=== PATIENT | female | born 1975 | race Caucasian/White ===

== ENCOUNTER 2021-09-23 10:16 | Observation (INO) | payer BC ==
[2021-09-17 13:42] LABS: Absolute Lymphocytes (CBC) 2.7 K/uL (0.7-4.9); Basophils % 0.7 % (0-1.3); Hematocrit 44.8 % (36.0-45.0); Lymphocytes % 22.2 % (15.3-44.8); MPV 7.7 fL (7.6-11.3); RBC Red Blood Cell Count 4.88 M/uL (3.86-4.86)
[2021-09-17 13:43] LABS: Urine Appearance CLEAR (Clear); Urine Bilirubin NEGATIVE (Negative); Urine Blood 3+ (Negative); Urine Color YELLOW (Yellow); Urine Glucose NEGATIVE (Negative); Urine Protein NEGATIVE (Negative); Urine Specific Gravity <=1.005 (1.005-1.030)
[2021-09-17 13:44] LABS: Urine Microscopic Reflex ORDER UMIC
[2021-09-17 13:53] LABS: Urine Bacteria <20 /HPF (<20); Urine RBC LOADED /HPF (NONE SEEN)
[2021-09-23] MEDS ORDERED: Ringers Lactate 1,000 ML IV ONE ×3 (11:12→15:39)
[2021-09-23] MEDS ORDERED: SCOPOLAMINE HYDROBROMIDE PATCH TD ONE (11:12)
[2021-09-23] MEDS ORDERED: MIDAZOLAM HCL 2 MG/2 ML INJ ONE ×2 (11:44→12:19)
[2021-09-23] MEDS ORDERED: ALBUTEROL 2.5 MG/3 ML NEB SOL ONE ×2 (11:50→15:39)
[2021-09-23] MEDS ORDERED: propofoL 200 MG/20 ML VIAL IV ONE (12:19)
[2021-09-23] MEDS ORDERED: ONDANSETRON 4 MG/2 ML VIAL ONE (12:20)
[2021-09-23] MEDS ORDERED: ROCURONIUM 50 MG/5 ML VIAL IV ONE ×2 (12:20→13:38)
[2021-09-23] MEDS ORDERED: FENTANYL CITR 250 MCG/5 ML ONE (12:20)
[2021-09-23] MEDS ORDERED: GLYCOPYRROLATE 0.2 MG/ML SYR ONE (12:20)
[2021-09-23] MEDS: CEFAZOLIN/SWI 2gm 2 GM/20 ML SYR ONE ×2 (12:55→13:03)
[2021-09-23] MEDS: BUPIVACAINE 0.25% PF 30 ML VIAL ONE ×3 (12:56→13:50)
[2021-09-23] MEDS ORDERED: dexAMETHasone 10 MG/ML VIAL ONE (13:31)
[2021-09-23] MEDS ORDERED: KETOROLAC 30 MG/ML INJ ONE ×2 (14:54→21:09)
[2021-09-23] MEDS ORDERED: Mastisol Adhesive Liq ONE (15:26)
[2021-09-23] MEDS ORDERED: ALBUTEROL INHALER 60 PUFF/8 GM IH PRN (15:38)
[2021-09-23] MEDS ORDERED: PROMETHAZINE INJ 25 MG/ML AMP IV PRN (15:40)
[2021-09-23] MEDS ORDERED: MEPERIDINE HCL 25 MG/ML SYR IM PRN (15:40)
--- NOTE | 2021-09-23 15:46 | P.BOP ---
Preoperative diagnosis: AUB-A/o/ Dysmenorrhea, left ovarian cyst Postoperative diagnosis: same Primary procedure: TLH LSO pelvic washings ALMA omental adhesions cystoscopy Rehabilitation Specialist: Amina Hou Estimated blood loss: minimal Specimen: uterus left ovary and tube, pelvic washings Findings: left ovarian cysts, omental adhesions Anesthesia: General Complications: None Transferred to: Recovery Room Condition: Good
[2021-09-23] MEDS: HYDROMORPHONE HCL 1 MG/ML INJ ONE ×2 (15:52→16:08)
[2021-09-23] MEDS ORDERED: HYDROMORPHONE HCL 1 MG/ML INJ ONE (16:06)
[2021-09-23 17:26] VITALS: O2SAT 96
[2021-09-23] MEDS ORDERED: PROMETHAZINE INJ 25 MG/ML AMP ONE (18:57)
[2021-09-23] MEDS ORDERED: HYDROCODONE/APAP 5/325 MG TAB ONE (19:06)
[2021-09-23] MEDS: HYDROCODONE/APAP 5/325 MG TAB PO PRN (19:10)
[2021-09-23] MEDS ORDERED: NA CHLORIDE 0.9% 1,000 ML ONE (19:47)
[2021-09-23] MEDS ORDERED: MEPERIDINE HCL 25 MG/ML SYR ONE (20:21)
[2021-09-23] MEDS ORDERED: DICLOFENAC POTASSIUM 50 MG PO SCH (21:00)
[2021-09-23] MEDS ORDERED: BACLOFEN 10 MG TAB PO SCH (21:00)
[2021-09-23] MEDS ORDERED: PREGABALIN 75 MG CAP PO SCH (21:00)
[2021-09-23] MEDS ORDERED: SUMATRIPTAN SUCCI 50 MG TAB PO PRN (23:05)
[2021-09-24 00:03] VITALS: BMI 34.5
[2021-09-24] MEDS: HYDROCODONE/APAP 5/325 MG TAB PO PRN ×2 (01:10→07:23)
[2021-09-24] MEDS ORDERED: DULERA 100/5 (MOMETASONE/FORMOTEROL) INHALER IH SCH (09:00)
[2021-09-24 09:45] VITALS: BP 95/55; TEMP 98.6
== END 2021-09-24 08:18 | disposition other institution (70) ==
LOC: OR 10:16 → 2ND-WC 22:57
PROVIDERS: ADMIT Obstetrics & Gynecology; ATTEND Obstetrics & Gynecology
PROC: 0UT14ZZ Resection of Left Ovary, Percutaneous Endoscopic Approach (ICD-10-PCS; 2021-09-23)
PROC: 0UT64ZZ Resection of Left Fallopian Tube, Percutaneous Endoscopic Approach (ICD-10-PCS; 2021-09-23)
PROC: 0UT94ZZ Resection of Uterus, Percutaneous Endoscopic Approach (ICD-10-PCS; principal; 2021-09-23 12:45)
DX: N94.6 Dysmenorrhea, unspecified (principal); N83.202 Unspecified ovarian cyst, left side; N92.1 Excessive and frequent menstruation with irregular cycle; R19.09 Other intra-abdominal and pelvic swelling, mass and lump; M54.59 Other low back pain; J45.909 Unspecified asthma, uncomplicated; M70.62 Trochanteric bursitis, left hip; F17.200 Nicotine dependence, unspecified, uncomplicated; Z20.822 Contact with and (suspected) exposure to COVID-19
CPT/HCPCS: 85025; 36415; 86900; 88108; 86850; 81025; 86901; 88305; 88307; 58571; U0003; J2704; J2250 ×2; J3010; J1100; J2175; J1170 ×2; J0690; J7120 ×3; J7030; J2405; G0378 ×2; 81003; 81015; J2550; J7606

== ENCOUNTER 2024-01-21 11:09 | Observation (INO) | payer BC ==
--- OUTSIDE RECORDS SUMMARY | 2024-01-21 11:13 | XMS REPORT | Continuity of Care Document ---
Author Name Unknown Address [address] [facility] [place] [address] [facility] Address [address] [facility] [place] [address] Care Team Providers Care Bookmobile Librarian Name Role Phone Pcp, Patient Does Not Have A Primary Care Physic noemi GC_GCBZW_Kaamarisa_S Attending Clinician JOSH Torres Attending Clinician Unavailable Service/[place], Surgery C Attending Clinician U dominic Johnson MD, Osiel Attending Clinician [phone] Josh Rodas MD Attending Clinician [phone] Doctor Unassigned, [place] Attending Clinician U Matteo Aparicio DO Attending Clinician [phone] Sreedhar Young MD Attending Clinician [phone] SREEDHAR YOUNG Attending Clinician Astrid peter GC_GCBZW_Kaxiao_Phillip Admitting Clinician Matteo Sanchez DO Admitting Clinician [phone] MATTEO HOOPER Admitting Clinician Unavailabl e Payers Payer Name Policy Type Policy Number Effective Date Expirati on Date Source [facility] [id number] 2014 00:00:00 Problems Condition Name Condition Details Condition Category Status Onset Date Resolution Date Last Treatment Date Treating Clinician Comments Source Obesity (BMI 30-39.9) Obesity (BMI 30-39.9) Disease Active 2021-11 00:00: 00 [facility] Acute cholecysti tis Acute cholecysti tis Disease Active 2021-1116 00:00: 00 [facility] Pelvic mass in female Pelvic mass in female Disease Active 07-25 00:00: 00 [facility] Allergies, Adverse Reactions, Alerts Allergy Name Allergy Type Status Severity Reaction(s) Onset Date Inactive Date Treating Clinician Comments Source NO KNOWN ALLERGIE S Drug Class Active [facility] Social History Social Habit Start Date Stop Date Quantity Comments Source History of tobacco use Smokes tobacco daily [facility] Exposure to SARS-CoV-2 (event) 2022-10-10 00:00:00 2022-10-20 10:00:00 Not sure [facility] Sex Assigned At 1975 00:00:00 1975 00:00:00 [facility] Smoking Status Start Date Stop Date Source Smokes tobacco daily [facility] Medications Ordered Medication Name Filled Medication Name Start Date Stop Date Current Medication? Ordering Clinician Indication Dosage Frequency Signature (SIG) Comments Components Source PARoxetine 10 mg tablet 2021-11 10:11: 29 Yes 10mg Take 10 mg by mouth in the morning. [facility] baclofen 10 mg tablet 2021-11 10:11: 29 Yes 15mg Take 15 mg by mouth in the morning and 15 mg at noon and 15 mg in the evening. [facility] pregabalin 75 mg capsule 2021-11 10:11: 29 Yes 75mg Take 75 mg by mouth in the morning and 75 mg at noon and 75 mg in the evening. [facility] diclofenac 50 mg EC tablet 2021-11 10:11: 29 Yes 50mg Take 50 mg by mouth in the morning and 50 mg at noon and 50 mg in the evening. Take with meals. [facility] HYDROcodone -acetaminop hen 5-325 mg tablet 2021-11 10:11: 29 Yes 1{tbl} Take 1 tablet by mouth in the morning. [facility] albuterol 2.5 mg/0.5 mL nebulizer solution 2021-11 10:11: 29 Yes 1{ampul e} Use 1 Ampule as directed every 6 (six) hours as needed for Wheezing. [facility] PARoxetine 10 mg tablet 2021-11 10:: 29 Yes 10mg Take 10 mg by mouth in the morning. [facility] baclofen 10 mg tablet 2021-11 10:11: 29 Yes 15mg Take 15 mg by mouth in the morning and 15 mg at noon and 15 mg in the evening. [facility] pregabalin 75 mg capsule 2021-11 10:: 29 Yes 75mg Take 75 mg by mouth in the morning and 75 mg at noon and 75 mg in the evening. [facility] diclofenac 50 mg EC tablet 2021-11 10:11: 29 Yes 50mg Take 50 mg by mouth in the morning and 50 mg at noon and 50 mg in the evening. Take with meals. [facility] HYDROcodone -acetaminop hen 5-325 mg tablet 2021-11 10:11: 29 Yes 1{tbl} Take 1 tablet by mouth in the morning. [facility] albuterol 2.5 mg/0.5 mL nebulizer solution 2021-11 10:11: 29 Yes 1{ampul e} Use 1 Ampule as directed every 6 (six) hours as needed for Wheezing. [facility] polyethylen e glycol 3350 17 gram powder 2021-11 00:00: 00 Yes [id number] 17g Take 1 Packet by mouth every morning. [facility] polyethylen e glycol 3350 17 gram powder 2021-11 00:00: 00 Yes [id number] 17g Take 1 Packet by mouth every morning. [facility] polyethylen e glycol 3350 17 gram powder 2021-11 00:00: 00 Yes [id number] 17g Take 1 Packet by mouth every morning. [facility] polyethylen e glycol 3350 17 gram powder 2021-11 00:00: 00 Yes [id number] 17g Take 1 Packet by mouth every morning. [facility] polyethylen e glycol 3350 17 gram powder 2021-11 00:00: 00 Yes [id number] 17g Take 1 Packet by mouth every morning. [facility] polyethylen e glycol 3350 17 gram powder 2021-11 00:00: 00 Yes [id number] 17g Take 1 Packet by mouth every morning. [facility] PARoxetine 10 mg tablet 2021-11 17:35: 32 Yes 10mg Take 10 mg by mouth in the morning. [facility] baclofen 10 mg tablet 2021-11 17:35: 32 Yes 15mg Take 15 mg by mouth in the morning and 15 mg at noon and 15 mg in the evening. [facility] pregabalin (LYRICA) 75 mg capsule 2021-11 17:35: 32 Yes 75mg Take 75 mg by mouth in the morning and 75 mg at noon and 75 mg in the evening. [facility] diclofenac 50 mg EC tablet 2021-11 17:35: 32 Yes 50mg Take 50 mg by mouth in the morning and 50 mg at noon and 50 mg in the evening. Take with meals. [facility] HYDROcodone -acetaminop hen (NORCO) 5-325 mg tablet 2021-11 17:35: 32 Yes 1{tbl} Take 1 tablet by mouth in the morning. [facility] fluticasone propion-xenia meteroL 250-50 mcg/dose inhalation disk 2021-11 17:35: 32 Yes 1{puff} Inhale 1 Puff every 12 (twelve) hours. [facility] albuterol 2.5 mg/0.5 mL nebulizer solution 2021-11 17:35: 32 Yes 1{ampul e} Use 1 Ampule as directed every 6 (six) hours as needed for Wheezing. [facility] PARoxetine 10 mg tablet 2021-11 17:35: 32 Yes 10mg Take 10 mg by mouth in the morning. [facility] baclofen 10 mg tablet 2021-11 17:35: 32 Yes 15mg Take 15 mg by mouth in the morning and 15 mg at noon and 15 mg in the evening. [facility] pregabalin (LYRICA) 75 mg capsule 2021-11 17:35: 32 Yes 75mg Take 75 mg by mouth in the morning and 75 mg at noon and 75 mg in the evening. [facility] diclofenac 50 mg EC tablet 2021-11 17:35: 32 Yes 50mg Take 50 mg by mouth in the morning and 50 mg at noon and 50 mg in the evening. Take with meals. [facility] HYDROcodone -acetaminop hen (NORCO) 5-325 mg tablet 2021-11 17:35: 32 Yes 1{tbl} Take 1 tablet by mouth in the morning. [facility] fluticasone propion-xenia meteroL 250-50 mcg/dose inhalation disk 2021-11 17:35: 32 Yes 1{puff} Inhale 1 Puff every 12 (twelve) hours. [facility] albuterol 2.5 mg/0.5 mL nebulizer solution 2021-11 17:35: 32 Yes 1{ampul e} Use 1 Ampule as directed every 6 (six) hours as needed for Wheezing. [facility] fluticasone propion-xenia meteroL 250-50 mcg/dose inhalation disk 2021-11 17:35: 32 Yes 1{puff} Inhale 1 Puff every 12 (twelve) hours. [facility] fluticasone propion-xenia meteroL 250-50 mcg/dose inhalation disk 2021-11 17:35: 32 Yes 1{puff} Inhale 1 Puff every 12 (twelve) hours. [facility] PARoxetine 10 mg tablet 2021-11 17:35: 32 Yes 10mg Take 10 mg by mouth in the morning. [facility] baclofen 10 mg tablet 2021-11 17:35: 32 Yes 15mg Take 15 mg by mouth in the morning and 15 mg at noon and 15 mg in the evening. [facility] pregabalin (LYRICA) 75 mg capsule 2021-11 17:35: 32 Yes 75mg Take 75 mg by mouth in the morning and 75 mg at noon and 75 mg in the evening. [facility] diclofenac 50 mg EC tablet 2021-11 17:35: 32 Yes 50mg Take 50 mg by mouth in the morning and 50 mg at noon and 50 mg in the evening. Take with meals. [facility] HYDROcodone -acetaminop hen (NORCO) 5-325 mg tablet 2021-11 17:35: 32 Yes 1{tbl} Take 1 tablet by mouth in the morning. [facility] fluticasone propion-xenia meteroL 250-50 mcg/dose inhalation disk 2021-11 17:35: 32 Yes 1{puff} Inhale 1 Puff every 12 (twelve) hours. [facility] albuterol 2.5 mg/0.5 mL nebulizer solution 2021-11 17:35: 32 Yes 1{ampul e} Use 1 Ampule as directed every 6 (six) hours as needed for Wheezing. [facility] PARoxetine 10 mg tablet 2021-11 17:35: 32 Yes 10mg Take 10 mg by mouth in the morning. [facility] baclofen 10 mg tablet 2021-11 17:35: 32 Yes 15mg Take 15 mg by mouth in the morning and 15 mg at noon and 15 mg in the evening. [facility] pregabalin (LYRICA) 75 mg capsule 2021-11 17:35: 32 Yes 75mg Take 75 mg by mouth in the morning and 75 mg at noon and 75 mg in the evening. [facility] diclofenac 50 mg EC tablet 2021-11 17:35: 32 Yes 50mg Take 50 mg by mouth in the morning and 50 mg at noon and 50 mg in the evening. Take with meals. [facility] HYDROcodone -acetaminop hen (NORCO) 5-325 mg tablet 2021-11 17:35: 32 Yes 1{tbl} Take 1 tablet by mouth in the morning. [facility] fluticasone propion-xenia meteroL 250-50 mcg/dose inhalation disk 2021-11 17:35: 32 Yes 1{puff} Inhale 1 Puff every 12 (twelve) hours. [facility] albuterol 2.5 mg/0.5 mL nebulizer solution 2021-11 17:35: 32 Yes 1{ampul e} Use 1 Ampule as directed every 6 (six) hours as needed for Wheezing. [facility] celecoxib (CELEBREX) capsule 100 mg 2021-11 14:00: 00 Yes 100mg 100 mg, Oral, BID MEALS, First dose on Wed10/02/22 at 0800, Until Discontinu ed, Routine [facility] celecoxib (CELEBREX) capsule 100 mg 2021-11 14:00: 00 Yes 100mg 100 mg, Oral, BID MEALS, First dose on Wed10/02/22 at 0800, Until Discontinu ed, Routine [facility] acetaminoph en ADULT (OFIRMEV) injection 1,000 mg 2021-11 04:00: 00 10-03 03:59 :00 No 1000mg 1,000 mg, IV Infusion, at 400 mL/hr Administer over 15 Minutes, Q8H, 3 doses, First dose (after last reorder) on Wed10/01/22 at 2200, Last dose on Wed10/02/22 at 1400, Routine
Indicatio n: Perioperat anamika Patient [facility] acetaminoph en ADULT (OFIRMEV) injection 1,000 mg 2021-11 04:00: 00 10-03 03:59 :00 No 1000mg 1,000 mg, IV Infusion, at 400 mL/hr Administer over 15 Minutes, Q8H, 3 doses, First dose (after last reorder) on Wed10/01/22 at 2200, Last dose on Wed10/02/22 at 1400, Routine
Indicatio n: Perioperat anamika Patient [facility] bupivacaine (preserv free) (SENSORCAIN E MPF) 0.25 % (2.5 mg/mL) 30 mL, bupivacaine liposome (PF) (EXPAREL (PF)) 1.3 % (13.3 mg/mL) 20 mg 2021-11 23:00: 00 10-02 01:15 :02 No PRN, Starting on Wed10/01/22 at 1700, Intra-op [facility] methocarbam oL (ROBAXIN) tablet 500 mg 2021-11 22:00: 00 Yes 500mg 500 mg, Oral, QID, First dose on Wed10/01/22 at 1600, Until Discontinu ed, Routine [facility] methocarbam oL (ROBAXIN) tablet 500 mg 2021-11 22:00: 00 Yes 500mg 500 mg, Oral, QID, First dose on Wed10/01/22 at 1600, Until Discontinu ed, Routine [facility] PARoxetine (PAXIL) tablet 10 mg 2021-11 15:00: 00 Yes 10mg 10 mg, Oral, DAILY, First dose on Wed10/01/22 at 0900, Until Discontinu ed, Routine [facility] polyethylen e glycol 3350 powder 17 g 2021-11 15:00: 00 Yes 17g 17 g, Oral, QAM, First dose on Wed10/01/22 at 0900, Until Discontinu ed, Routine [facility] PARoxetine (PAXIL) tablet 10 mg 2021-11 15:00: 00 Yes 10mg 10 mg, Oral, DAILY, First dose on Wed10/01/22 at 0900, Until Discontinu ed, Routine [facility] polyethylen e glycol 3350 powder 17 g 2021-11 15:00: 00 Yes 17g 17 g, Oral, QAM, First dose on Wed10/01/22 at 0900, Until Discontinu ed, Routine [facility] piperacilli n-tazobacta m (ZOSYN) 3.375 g in NaCl 0.9% (NS) 50 mL MINI-BAG 2021-11 10:00: 00 10-02 01:01 :33 No 3.375g 3.375 g, IV Piggyback, Q8H ABX, 9 doses, First dose on Wed10/01/22 at 0400, Last dose on Wed10/03/22 at 2000, Administer over 4 Hours, 50 mL
Reas on for Anti-Infec tive: Documented Infection& lt;br>Docu mented Infection Site: Abdominal< br>Duratio n of Therapy: 7 days [facility] piperacilli n-tazobacta m (ZOSYN) 3.375 g in NaCl 0.9% (NS) 50 mL MINI-BAG 2021-11 10:00: 00 10-02 01:01 :33 No 3.375g 3.375 g, IV Piggyback, Q8H ABX, 9 doses, First dose on [place] 10/01/22 at 0400, Last dose on Wed10/03/22 at 2000, Administer over 4 Hours, 50 mL
Reas on for Anti-Infec tive: Documented Infection& lt;br>Docu mented Infection Site: Abdominal< br>Duratio n of Therapy: 7 days [facility] ketorolac (TORADOL) injection 15 mg 2021-11 06:00: 00 10-02 01:01 :33 No 15mg 15 mg, Slow IV Push, Q6H, 4 doses, First dose on Wed10/01/22 at 0000, Last dose on Wed10/01/22 at 1800, Routine [facility] ketorolac (TORADOL) injection 15 mg 2021-11 06:00: 00 10-02 01:01 :33 No 15mg 15 mg, Slow IV Push, Q6H, 4 doses, First dose on Wed10/01/22 at 0000, Last dose on Wed10/01/22 at 1800, Routine [facility] acetaminoph en ADULT (OFIRMEV) injection 1,000 mg 2021-11 04:00: 00 10-01 19:51 :00 No 1000mg 1,000 mg, IV Infusion, at 400 mL/hr Administer over 15 Minutes, Q8H, 3 doses, First dose on Wed09/30/22 at 2200, Last dose on Wed10/01/22 at 1400, Routine
Indicatio n: Perioperat anamika Patient [facility] acetaminoph en ADULT (OFIRMEV) injection 1,000 mg 2021-11 04:00: 00 10-01 19:51 :00 No 1000mg 1,000 mg, IV Infusion, at 400 mL/hr Administer over 15 Minutes, Q8H, 3 doses, First dose on Wed09/30/22 at 2200, Last dose on Wed10/01/22 at 1400, Routine
Indicatio n: Perioperat anamika Patient [facility] maalox:diph enhydrAMINE :lidocaine 2 % viscous 1:1:1 ([facility]) oral suspension 15 mL 2021-11 02:45: 51 Yes 15mL 15 mL, Oral, QDAILYPRN, Starting on Wed09/30/22 at 2044, Until Discontinu ed, Routine, Heartburn [facility] maalox:diph enhydrAMINE :lidocaine 2 % viscous 1:1:1 ([facility]) oral suspension 15 mL 2021-11 02:45: 51 Yes 15mL 15 mL, Oral, QDAILYPRN, Starting on Wed09/30/22 at 5, Until Discontinu ed, Routine, Heartburn [facility] piperacilli n-tazobacta m (ZOSYN) 3.375 g in NaCl 0.9% (NS) 50 mL MINI-BAG 2021-11 02:15: 00 10-01 03:05 :00 No 3.375g 3.375 g, IV Piggyback, ONCE, 1 dose, On Wed09/30/22 at 2015, Administer over 30 Minutes, 50 mL
Reas on for Anti-Infec tive: Documented Infection< br>Documen nadine Infection Site: Abdominal< br>Duratio n of Therapy: 7 days [facility] piperacilli n-tazobacta m (ZOSYN) 3.375 g in NaCl 0.9% (NS) 50 mL MINI-BAG 2021-11 02:15: 00 10-01 03:05 :00 No 3.375g 3.375 g, IV Piggyback, ONCE, 1 dose, On Wed09/30/22 at 2014, Administer over 30 Minutes, 50 mL
Reas on for Anti-Infec tive: Documented Infection< br>Documen nadine Infection Site: Abdominal< br>Duratio n of Therapy: 7 days [facility] pregabalin (LYRICA) capsule 75 mg 2021-11 02:00: 00 Yes 75mg 75 mg, Oral, TID, First dose on Wed09/30/22 at 1999, Until Discontinu ed, Routine [facility] budesonide- formoteroL (SYMBICORT) 160-4.5 mcg/actuati on inhaler 2 Puff 2021-11 02:00: 00 Yes 2{puff} 2 Puff, Inhalation , BID, First dose on Wed09/30/22 at 1999, Until Discontinu ed [facility] pregabalin (LYRICA) capsule 75 mg 2021-11 02:00: 00 Yes 75mg 75 mg, Oral, TID, First dose on Wed09/30/22 at 2000, Until Discontinu ed, Routine [facility] budesonide- formoteroL (SYMBICORT) 160-4.5 mcg/actuati on inhaler 2 Puff 2021-11 02:00: 00 Yes 2{puff} 2 Puff, Inhalation , BID, First dose on Wed09/30/22 at 1999, Until Discontinu ed [facility] D5W 0.45% NaCl (1/2NS) 1 L + KCL 20 mEq 2021-11 01:30: 00 Yes IV Infusion, at 100 mL/hr, CONTINUOUS , Starting on Wed09/30/22 at 1930, Until Discontinu ed, Routine [facility] D5W 0.45% NaCl (1/2NS) 1 L + KCL 20 mEq 2021-11 01:30: 00 Yes IV Infusion, at 100 mL/hr, CONTINUOUS , Starting on Wed09/30/22 at 1930, Until Discontinu ed, Routine [facility] pantoprazol e (PROTONIX) injection 40 mg 2021-11 01:30: 00 10-04 01:14 :00 No 40mg 40 mg, Slow IV Push, Q24H, 3 doses, First dose on Wed09/30/22 at 1930, Last dose on Wed10/02/22 at 1930 [facility] pantoprazol e (PROTONIX) injection 40 mg 2021-11 01:30: 00 10-04 01:14 :00 No 40mg 40 mg, Slow IV Push, Q24H, 3 doses, First dose on Wed09/30/22 at 1930, Last dose on Wed10/02/22 at 1930 [facility] HYDROcodone -acetaminop hen (NORCO 5) 5-325 mg tablet 1 tablet 2021-11 01:13: 27 Yes 1{tbl} 1 tablet, Oral, Q6HPRN, Starting on Wed09/30/22 at 1913, Until Discontinu ed, Routine, Pain (scale 4-6) [facility] HYDROcodone -acetaminop hen (NORCO 5) 5-325 mg tablet 1 tablet 2021-11 01:13: 27 Yes 1{tbl} 1 tablet, Oral, Q6HPRN, Starting on Wed09/30/22 at 1913, Until Discontinu ed, Routine, Pain (scale 4-6) [facility] morpHINE (4 mg/mL) injection 4 mg 2021-11 01:13: 19 Yes 4mg 4 mg, Slow IV Push, Q4HPRN, Starting on Wed09/30/22 at 1913, Until Discontinu ed, Routine, Pain (scale 7-10) [facility] morpHINE (4 mg/mL) injection 4 mg 2021-11 01:13: 19 Yes 4mg 4 mg, Slow IV Push, Q4HPRN, Starting on Wed09/30/22 at 1913, Until Discontinu ed, Routine, Pain (scale 7-10) [facility] ibuprofen (MOTRIN) 600 mg tablet 07-28 00:00: 00 09-30 00:00 :00 No 600mg Take 1 tablet by mouth every 6 (six) hours as needed for Pain (scale 4-6). [facility] ibuprofen (MOTRIN) 600 mg tablet 2016-0 9-13 00:00: 00 09-30 00:00 :00 No 600mg Take 1 tablet by mouth every 6 (six) hours as needed for Pain (scale 4-6). [facility] Vital Signs Vital Name Observation Time Observation Value Comments S phan Systolic blood pressure 2022-10-20 16:11:00 118 mm[Hg] [facility] Diastolic blood pressure 2022-10-20 16:11:00 73 mm[Hg] [facility] Heart rate 2022-10-20 16:11:00 77 /min [facility] Body temperature 2022-10-20 16:11:00 36.17 [facility] Respiratory rate 2022-10-20 16:11:00 18 /min [facility] Body height 2022-10-20 16:11:00 160 cm [facility] Body weight 2022-10-20 16:11:00 85.73 kg [facility] BMI 2022-10-20 16:11:00 33.48 kg/m2 [facility] Heart rate 2022-10-02 14:50:00 69 /min [facility] Respiratory rate 2022-10-02 14:50:00 16 /min [facility] Oxygen saturation in Arterial blood by Pulse oximetry 2022-10-02 14:50:00 97 /min [facility] Systolic blood pressure 2022-10-02 14:45:00 111 mm[Hg] [facility] Diastolic blood pressure 2022-10-02 14:45:00 61 mm[Hg] [facility] Body temperature 2022-10-02 14:45:00 36.5 Bar[facility] Body weight 2022-10-01 00:44:00 79.379 kg [facility] BMI 2022-10-01 00:44:00 31.00 kg/m2 [facility] Systolic blood pressure 2022-10-01 17:41:00 121 mm[Hg] [facility] Diastolic blood pressure 2022-10-01 17:41:00 81 mm[Hg] [facility] Heart rate 2022-10-01 17:41:00 89 /min [facility] Body temperature 2022-10-01 17:41:00 37.89 [facility] Respiratory rate 2022-10-01 17:41:00 20 /min [facility] Oxygen saturation in Arterial blood by Pulse oximetry 2022-10-01 17:41:00 96 /min [facility] Body weight 2022-10-01 00:44:00 79.379 kg [facility] BMI 2022-10-01 00:44:00 31.00 kg/m2 [facility] Procedures Procedure Date / Time Performed Performing Clinician Source CONSENT/REFUSAL FOR DIAGNOSIS AND TREATMENT 2022-10-20 16:01:13 Doctor Unassigned, [place] [facility] EXTERNAL PROVIDER RECORDS 2022-10-12 06:01:00 Do ctor Unassigned, [place] [facility] PHOSPHORUS 2022-10-02 08:18:00 Jose CruzSandy [facility] MAGNESIUM 2022-10-02 08:18:00 Jose CruzSandy [facility] HEPATIC FUNCTION PANEL ([id number]) (ALB,T.PRO,BILI T,BU/BC,ALT,AST,ALK PHOS) 2022-10-02 08:18:00 Josefa Billingsley [facility] BASIC METABOLIC PANEL (NA, K, CL, CO2, GLUCOSE, BUN, CREATININE, CA) 2022-10-02 08:18:00 Jose CruzJosefa perez [facility] CBC WITH DIFF 2022-10-02 08:18:00 Jose CruzSandy [facility] PHOSPHORUS 2022-10-02 08:18:00 Jose CruzSandy [facility] MAGNESIUM 2022-10-02 08:18:00 Jose CruzSandy perez [facility] HEPATIC FUNCTION PANEL ([id number]) (ALB,T.PRO,BILI T,BU/BC,ALT,AST,ALK PHOS) 2022-10-02 08:18:00 Jose CruzJosefa perez [facility] BASIC METABOLIC PANEL (NA, K, CL, CO2, GLUCOSE, BUN, CREATININE, CA) 2022-10-02 08:18:00 Jose CruzJosefa [facility] CBC WITH DIFF 2022-10-02 08:18:00 Jose CruzSandy [facility] EXTRA TUBE LAV 2022-10-01 23:48:00 Matteo Hooper [facility] EXTRA TUBE LAV 2022-10-01 23:48:00 Matteo Hooper [facility] LAPAROSCOPIC CHOLECYSTECTOMY 2022-10-01 21:54:00 Sreedhar Young Judy [facility] LAPAROSCOPIC CHOLECYSTECTOMY 2022-10-01 21:54:00 Sreedhar Young [facility] PHOSPHORUS 2022-10-01 09:57:00 Jose Cruz, Sandy rodriges [facility] MAGNESIUM 2022-10-01 09:57:00 Jose CruzSandy [facility] HEPATIC FUNCTION PANEL ([id number]) (ALB,T.PRO,BILI T,BU/BC,ALT,AST,ALK PHOS) 2022-10-01 09:57:00 Jose CruzJosefa [facility] BASIC METABOLIC PANEL (NA, K, CL, CO2, GLUCOSE, BUN, CREATININE, CA) 2022-10-01 09:57:00 Jose CruzJosefa [facility] CBC WITH DIFF 2022-10-01 09:57:00 Jose CruzSandy [facility] PHOSPHORUS 2022-10-01 09:57:00 Jose Cruz, Sandy rodriges [facility] MAGNESIUM 2022-10-01 09:57:00 Jose Cruz, Sandy rodriges [facility] HEPATIC FUNCTION PANEL ([id number]) (ALB,T.PRO,BILI T,BU/BC,ALT,AST,ALK PHOS) 2022-10-01 09:57:00 Jose CruzJosefa [facility] BASIC METABOLIC PANEL (NA, K, CL, CO2, GLUCOSE, BUN, CREATININE, CA) 2022-10-01 09:57:00 Jose CruzJosefa [facility] CBC WITH DIFF 2022-10-01 09:57:00 Sandy Billingsley [facility] US ABDOMEN LIMITED 2022-10-01 02:28:15 Josefa Billingsley [facility] ABDOMEN LIMITED 2022-10-01 02:28:15 Josefa Billingsley [facility] Encounters Start Date/Time End Date/Time Encounter Type Admission Type Attending [facility] Care Facility Care Department Encounter ID Source 2023-09-13 00:00:00 2023-09-13 00:00:00 Outpatient GC_GCBZW_Ka diyala_S PRIV PRIV [id number] [facility] 2023-09-12 00:00:00 2023-09-12 00:00:00 Outpatient GC_GCBZW_Ka diyala_S PRIV PRIV [id number] [facility] 2022-10-20 10:15:00 2022-10-20 11:00:41 Outpatient JOSH LYON [facility] [id number] [facility] 2022-10-20 10:15:00 2022-10-20 11:00:41 Office Visit Service/Gen surg, Surgery C Osiel Johnson [facility] [id number] [facility] 2022-10-20 00:00:00 2022-10-20 00:00:00 Orders Only Doctor Unassigned, [place] [facility] [id number] [facility] 2022-10-12 00:00:00 2022-10-12 00:00:00 Orders Only Doctor Unassigned, [place] [facility] [id number] [facility] [facility] 2022-09-30 18:41:00 2022-10-02 14:00:00 [facility] [id number] [facility] 2022-09-30 18:41:00 2022-10-02 14:00:00 Outpatient X [facility] [id number] [facility] 2022-10-01 14:25:00 2022-10-01 17:28:00 Surgery [facility] [id number] [facility]
--- NOTE | 2024-01-21 11:49 | RAD REPORT ---
EXAM DESCRIPTION: RAD - Chest Single View - 01/21/2024 11:42 am CLINICAL HISTORY: DYSPNEA Chest pain. COMPARISON: Chest Pa And Lat (2 Views) dated 10/08/2021; Chest Single View dated 07/25/2016 FINDINGS: Portable technique limits examination quality. The lungs are grossly clear. The heart is normal in size. No displaced fractures. IMPRESSION: No acute intrathoracic process suspected.
[2024-01-21 12:18] LABS: Absolute Basophils 0.1 K/uL (0-0.5); Absolute Lymphocytes (CBC) 2.6 K/uL (0.7-4.9); Basophils % 0.6 % (0-1.3); Hematocrit 45.4 % (36.0-45.0); MCV 92.7 fL (80-100); MPV 7.8 fL (7.6-11.3); Platelets 284 thou/uL (152-406)
[2024-01-21 12:22] LABS: Protime INR 0.9
[2024-01-21 12:35] LABS: SARS-CoV-2 Antigen Rapid Res Negative (Negative)
[2024-01-21] MEDS ORDERED: METHYLPREDNISOLONE 125 MG INJ ONE (12:36)
[2024-01-21] MEDS ORDERED: IPRATROPIUM BROM 0.5MG/2.5ML ONE (12:36)
[2024-01-21] MEDS ORDERED: Levofloxacin500mg IV 500 MG/100 ML BAG IV ONE (12:37)
[2024-01-21] MEDS ORDERED: predniSONE 20 MG TAB ONE (12:37)
[2024-01-21] MEDS ORDERED: LEVALBUTEROL 1.25 MG/3 ML NEB ONE (12:37)
[2024-01-21] MEDS ORDERED: NA CHLORIDE 0.9% 1,000 ML ONE (12:37)
[2024-01-21 12:53] LABS: Albumin 3.7 g/dL (3.4-5.0); Bilirubin Direct 0.1 mg/dL (0-0.2); Bilirubin Indirect, Calculated 0.3 mg/dL (0.2-0.8); Bilirubin Total 0.4 mg/dL (0.2-1.0); Magnesium 2.1 mg/dL (1.6-2.4); Protein, Total 7.5 g/dL (6.4-8.2); Troponin High Sensitivity 3.3 pg/mL (<58.9)
[2024-01-21] MEDS ORDERED: ALBUTEROL 2.5 MG/3 ML NEB SOL ONE (13:19)
[2024-01-21] MEDS ORDERED: Magnesium Sulfate 2gm IVPB 2 G/50 ML BAG IV ONE (13:19)
[2024-01-21] MEDS ORDERED: ENOXAPARIN 40 MG/0.4 ML SQ ONE (14:04)
--- NOTE | 2024-01-21 14:06 | ER ---
Nurse's Notes [facility] Name: Adelina Michaud Age: 48 yrs Sex: Female : 1975 Arrival Date: 01/21/2024 Time: 11:09 Bed 13 Private MD: Diagnosis: Dyspnea;Moderate persistent asthma with (acute) exacerbation;Tobacco abuse counseling;Tobacco use;Solitary pulmonary nodule Presentation: 01/20 12:00 Chief complaint: Patient states: SOB, audible wheezing noted, pt having trouble aa5 speaking in full sentences. 12:00 Onset of symptoms was January 21, 2024. aa5 12:00 Acuity: WILLIAM 2 aa5 12:00 Coronavirus screen: shortness of breath. Ebola Screen: [facility] denies [facility] in the 21 days before illness onset. Risk Assessment: Do you want to hurt yourself or someone else? Patient reports no desire to harm self or others. 12:00 Method Of Arrival: Wheelchair aa5 12:00 Initial Sepsis Screen: Does the patient meet any 2 criteria? No. Patient's initial aa5 sepsis screen is negative. Does the patient have a suspected source of infection? No. Patient's initial sepsis screen is negative. Historical: - Allergies: 12:05 No Known Allergies; aa5 - PMHx: 12:05 Asthma; Migraines; aa5 - Immunization history:: Adult Immunizations unknown. - Social history:: Smoking status: Patient reports the use of cigarette tobacco products, smokes one pack cigarettes per day. Screenin:30 [facility] ED Fall Risk Assessment (Adult) History of falling in the last 3 months, kc6 including since admission No falls in past 3 months (0 pts) Confusion or Disorientation No (0 pts) Intoxicated or Sedated No (0 pts) Impaired Gait Yes (1 pt) Mobility Assist Device Used Yes (1 pt) Altered Elimination No (0 pt) Score/Fall Risk Level 0 - 2 = Low Risk. Abuse screen: Denies threats or abuse. Denies injuries from another. Nutritional screening: No deficits noted. Tuberculosis screening: No symptoms or risk factors identified. Assessment: 13:30 General: Appears in no apparent distress. uncomfortable, well groomed, well developed, kc6 Behavior is calm, cooperative, appropriate for age. Pain: Complains of pain in chest. Neuro: Level of Consciousness is awake, alert, obeys commands, Oriented to person, place, time, situation, Appropriate for age. Cardiovascular: Reports chest pain, Heart tones S1 S2 present Capillary refill < 3 seconds Rhythm is sinus rhythm. Respiratory: Reports shortness of breath at rest on exertion pain with respiration Airway is patent Trachea midline Respiratory effort is even, labored, pursed lip, Respiratory pattern is regular, symmetrical, Breath sounds with wheezes bilaterally. GI: No signs and/or symptoms were reported involving the gastrointestinal system. : No signs and/or symptoms were reported regarding the genitourinary system. EENT: No signs and/or symptoms were reported regarding the EENT system. Derm: No signs and/or symptoms reported regarding the dermatologic system. Skin is intact, is healthy with good turgor, Skin is pink, warm \T\ dry. Musculoskeletal: No signs and/or symptoms reported regarding the musculoskeletal system. Circulation, motion, and sensation intact. Capillary refill < 3 seconds, Range of motion: intact in all extremities. Vital Signs: 12:00 Pulse Ox 99% on R/A; aa5 12:34 BP 112 / 76; Pulse 85; Resp 16 S; Pulse Ox 95% on R/A; kc6 13:32 BP 90 / 63; Pulse 94; Resp 19 S; Pulse Ox 97% on R/A; kc6 ED Course: 11:12 Patient arrived in ED. ra3 11:13 Jose Alfredo Suárez MD is Attending Physician. carl 11:43 XRAY Chest (1 view) In Process Unspecified. EDMS 12:00 Arm band placed on Patient placed in an exam room, on a stretcher. aa5 12:07 Triage completed. aa5 12:11 Lipase Sent. bc6 12:11 SARS RAPID Sent. bc6 12:11 Flu Sent. bc6 12:11 Basic Metabolic Panel Sent. bc6 12:11 CBC with Diff Sent. bc6 12:11 D-Dimer Sent. bc6 12:11 LFT's Sent. bc6 12:11 Magnesium Sent. bc6 12:11 NT PRO-BNP Sent. bc6 12:11 PT-INR Sent. bc6 12:11 Troponin HS Sent. bc6 12:11 Inserted saline lock: 20 gauge in left antecubital area, using aseptic technique. Blood bc6 collected. 12:12 Initial lab(s) drawn, by me, sent to lab. COVID swab sent to lab. Flu and/or RSV swab 6 sent to lab. 12:33 Sydney Vizcaino, RN is Primary Nurse. kc6 13:30 Patient has correct armband on for positive identification. Placed in gown. Bed in low kc6 position. Call light in reach. Side rails up X 1. Client placed on continuous cardiac and pulse oximetry monitoring. NIBP monitoring applied. monitoring manager on. 13:30 Patient maintains SpO2 saturation greater than 95% on room air. kc6 14:04 Kristian Saba is Hospitalizing Provider. carl 14:21 CT Chest For PE Angio In Process Unspecified. EDMS 16:13 No provider procedures requiring assistance completed. Patient admitted, IV remains in kc6 place. Administered Medications: 12:46 Drug: Levalbuterol Inhalation 3.75 mg Inhalation once Route: Inhalation; 6 12:46 Drug: Ipratropium Inhalation Aerosol 0.5 mg Inhalation once Route: Inhalation; 6 12:46 Drug: levofloxacin IVPB 500 mg 100 ml IVPB once over 60 mins Volume: 100 ml; Route: kc6 IVPB; Infused Over: 60 mins; Site: left antecubital; 12:47 Drug: NS 0.9% IV 1000 ml IV at 1 bolus Per protocol; 1000 mL bolus Route: IV; Rate: 1 kc6 bolus; Site: left antecubital; 12:47 Drug: MethylPrednisoLONE IVP 125 mg IVP once Route: IVP; Site: left antecubital; kc6 12:47 Drug: predniSONE PO 60 mg PO once Route: PO; 6 13:27 Drug: Levalbuterol Inhalation 2.5 mg Inhalation once Route: Inhalation; kc6 13:27 Drug: Magnesium Sulfate IVPB 2 grams IVPB once over 1 hrs Route: IVPB; Infused Over: 1 kc6 hrs; Site: left antecubital; 14:09 Drug: Lovenox Sub-Q 40 mg Sub-Q once Route: Sub-Q; Site: abdomen; kd3 Medication: 16:13 VIS not applicable for this client. kc6 Outcome: 14:05 Decision to Hospitalize by Provider. carl 16:13 Admitted to Med/surg accompanied by tech, via wheelchair, with chart, Report called to [facility] LELO Sullivan 16:13 Condition: good 16:13 Instructed on the need for admit, 16:13 Patient left the ED. kc6 Signatures: Dispatcher [employer] EDMS Jose Alfredo Suárez MD MD cha Calderon, Audri, RN RN aa5 Jocy Andre RN RN kd3 Sydney Vizcaino RN RN kc6 Astrid Preston6 Alexandra Noguera ra3
--- NOTE | 2024-01-21 14:06 | EDPHYS ---
Physician Documentation [facility] Name: Adelina Michaud Age: 48 yrs Sex: Female : 1975 Arrival Date: 01/21/2024 Time: 11:09 Bed 13 Private MD: ED Physician Jose Alfredo Suárez HPI: 01/20 13:54 This 48 yrs old Female presents to ER via Wheelchair with complaints of carl Shortness Of Breath. 13:54 The patient has shortness of breath at rest, with light activity. Onset: The carl symptoms/episode began/occurred 14 day(s) ago. Duration: The symptoms are continuous, and are steadily getting worse. The patient's shortness of breath is aggravated by coughing, light activity, supine position, is alleviated by elevating head, inhaler, nebulizer treatment, rest, sitting up, application of supplemental oxygen. Associated signs and symptoms: The patient has no apparent associated signs or symptoms. Severity of symptoms: At their worst the symptoms were moderate in the emergency department the symptoms have improved mildly. The patient has experienced similar episodes in the past, several times. Historical: - Allergies: 12:05 No Known Allergies; aa5 - PMHx: 12:05 Asthma; Migraines; aa5 - Immunization history:: Adult Immunizations unknown. - Social history:: Smoking status: Patient reports the use of cigarette tobacco products, smokes one pack cigarettes per day. ROS: 13:55 Constitutional: Negative for fever, chills, and weight loss, Eyes: Negative for injury, carl pain, redness, and discharge, ENT: Negative for injury, pain, and discharge, Neck: Negative for injury, pain, and swelling, Cardiovascular: Negative for chest pain, palpitations, and edema, Abdomen/GI: Negative for abdominal pain, nausea, vomiting, diarrhea, and constipation, Back: Negative for injury and pain, : Negative for injury, bleeding, discharge, and swelling, MS/Extremity: Negative for injury and deformity, Skin: Negative for injury, rash, and discoloration, Neuro: Negative for headache, weakness, numbness, tingling, and seizure, Psych: Negative for depression, anxiety, suicide ideation, homicidal ideation, and hallucinations, Allergy/Immunology: Negative for hives, rash, and allergies, Endocrine: Negative for neck swelling, polydipsia, polyuria, polyphagia, and marked weight changes, Hematologic/Lymphatic: Negative for swollen nodes, abnormal bleeding, and unusual bruising, 13:55 Respiratory: Positive for cough, shortness of breath, wheezing, inspiratory, expiratory, Exam: 13:56 Constitutional: This is a well developed, well nourished patient who is awake, alert, carl and in no acute distress. Head/Face: Normocephalic, atraumatic. Eyes: Pupils equal round and reactive to light, extra-ocular motions intact. Lids and lashes normal. Conjunctiva and sclera are non-icteric and not injected. Cornea within normal limits. Periorbital areas with no swelling, redness, or edema. ENT: Nares patent. No nasal discharge, no septal abnormalities noted. Tympanic membranes are normal and external auditory canals are clear. Oropharynx with no redness, swelling, or masses, exudates, or evidence of obstruction, uvula midline. Mucous membranes moist. Neck: Trachea midline, no thyromegaly or masses palpated, and no cervical lymphadenopathy. Supple, full range of motion without nuchal rigidity, or vertebral point tenderness. No Meningismus. Chest/axilla: Normal chest wall appearance and motion. Nontender with no deformity. No lesions are appreciated. Cardiovascular: Regular rate and rhythm with a normal S1 and S2. No gallops, murmurs, or rubs. Normal PMI, no JVD. No pulse deficits. Abdomen/GI: Soft, non-tender, with normal bowel sounds. No distension or tympany. No guarding or rebound. No evidence of tenderness throughout. Back: No spinal tenderness. No costovertebral tenderness. Full range of motion. Female : Normal external genitalia. Skin: Warm, dry with normal turgor. Normal color with no rashes, no lesions, and no evidence of cellulitis. MS/ Extremity: Pulses equal, no cyanosis. Neurovascular intact. Full, normal range of motion. Neuro: Awake and alert, GCS 15, oriented to person, place, time, and situation. Cranial nerves II-XII grossly intact. Motor strength 5/5 in all extremities. Sensory grossly intact. Cerebellar exam normal. Normal gait. 13:56 ECG was reviewed by the Attending Physician. 13:56 Respiratory: mild respiratory distress is noted, Respirations: labored breathing, that is mild, Breath sounds: bronchial sounds, decreased breath sounds, rhonchi, that are mild, wheezing: expiratory that is moderate, is heard diffusely, Vital Signs: 12:00 Pulse Ox 99% on R/A; aa5 12:34 BP 112 / 76; Pulse 85; Resp 16 S; Pulse Ox 95% on R/A; kc6 13:32 BP 90 / 63; Pulse 94; Resp 19 S; Pulse Ox 97% on R/A; kc6 MDM: 11:13 Patient medically screened. carl 13:59 Differential diagnosis: Anemia Anxiety Reaction asthma, Bronchitis CHF exacerbation, carl Chronic Obstructive Pulmonary Disease obstructed airway, tracheal injury, bronchitis, flu, URI, arrythmia, traumatic injury, pneumonia, Pneumothorax Psychogenic pulmonary edema, Pulmonary Embolism reactive airway disease, Sepsis Unstable Angina. Antibiotic administration: Levaquin given. Immunization status:. Data reviewed: vital signs, nurses notes, lab test result(s), EKG, radiologic studies, plain films. Consideration of Admission/Observation Patient was admitted/placed on observation. Escalation of care including admission/observation considered. I considered the following discharge prescriptions or medication management in the emergency department Medications were administered in the Emergency Department. See MAR. Test considered but Not performed: CT: NO CT CHEST. Historians other than the Patient: PT WELL INFORMED. Care significantly affected by the following chronic conditions: Hypertension, Chronic Obstructive Pulmonary Disease, Obesity, Liver Disease. Counseling: I had a detailed discussion with the patient and/or guardian regarding the historical points, exam findings, and any diagnostic results supporting the discharge/admit diagnosis, lab results, radiology results, the need for further work-up and treatment in the hospital. 01/20 11:14 Order name: Basic Metabolic Panel; Complete Time: 13: [facility] 01/20 11:14 Order name: CBC with Diff; Complete Time: 13:01/20 11:14 Order name: D-Dimer; Complete Time: 13:01/20 11:14 Order name: LFT's; Complete Time: 13: carl 01/20 11:14 Order name: Magnesium; Complete Time: 13:01/20 11:14 Order name: NT PRO-BNP; Complete Time: 13:01/20 11:14 Order name: PT-INR; Complete Time: 13:01/20 11:14 Order name: Troponin HS; Complete Time: 13: carl 01/20 11:14 Order name: Flu; Complete Time: 13:08 carl 01/20 11:14 Order name: SARS RAPID; Complete Time: 13:08 carl 01/20 11:14 Order name: Lipase; Complete Time: 13:08 carl 01/20 11:14 Order name: Urinalysis w/ reflexes carl 01/20 14:29 Order name: T4 Free EDMS 01/20 14:29 Order name: Thyroid Stimulating Hormone EDMS 01/20 14:29 Order name: Basic Metabolic Panel EDMS 01/20 14:29 Order name: Basic Metabolic Panel EDMS 01/20 14:29 Order name: Basic Metabolic Panel EDMS 01/20 14:29 Order name: Basic Metabolic Panel EDMS 01/20 14:29 Order name: Basic Metabolic Panel EDMS 01/20 14:29 Order name: Basic Metabolic Panel EDMS 08 14:29 Order name: CBC with Automated Diff EDMS 03/08 14:29 Order name: CBC with Automated Diff EDMS 03/08 14:29 Order name: CBC with Automated Diff EDMS 03/08 14:29 Order name: CBC with Automated Diff EDMS 03/08 14:29 Order name: CBC with Automated Diff EDMS 03/08 14:29 Order name: CBC with Automated Diff EDMS 03/08 14:29 Order name: Magnesium EDMS 03/08 14:29 Order name: Magnesium EDMS 03/08 14:29 Order name: Magnesium EDMS 03/08 14:29 Order name: Magnesium EDMS 03/08 14:29 Order name: Magnesium EDMS 03/08 14:29 Order name: Magnesium EDMS 03/08 14:29 Order name: Phosphorus EDMS 03/08 14:29 Order name: Phosphorus EDMS 03/08 14:29 Order name: Phosphorus EDMS 03/08 14:29 Order name: Phosphorus EDMS 03/08 14:29 Order name: Phosphorus EDMS 03/08 14:29 Order name: Phosphorus EDMS 03/08 14:29 Order name: Vitamin D, 25 (OH), TOTAL EDMS 01/20 14:29 Order name: Vitamin D, 25 (OH), TOTAL EDMS 08 11:14 Order name: XRAY Chest (1 view); Complete Time: 13:08 carl 01/20 14:02 Order name: CT Chest For PE Angio; Complete Time: 14:54 carl 01/20 11:14 Order name: EKG; Complete Time: 11:[address] [facility] 01/20 11:14 Order name: Cardiac monitoring; Complete Time: 12:[address] [facility] 01/20 11:14 Order name: EKG - Nurse/Tech; Complete Time: 12:[address] [facility] 01/20 11:14 Order name: IV Saline Lock; Complete Time: 12:[address] [facility] 01/20 11:14 Order name: Labs collected and sent; Complete Time: 12:[address] [facility] 01/20 11:14 Order name: O2 Per Protocol; Complete Time: 12:[address] [facility] 01/20 11:14 Order name: O2 Sat Monitoring; Complete Time: 12:[address] [facility] EC:56 Rate is 96 beats/min. Rhythm is regular. QRS [place] is Normal. [place] interval is normal. QRS carl interval is normal. QT interval is normal. No Q waves. T waves are Normal. No ST changes noted. Clinical impression: NSR w/ Non-specific ST/T Changes and No evidence of ischemia. Interpreted by me. Reviewed by me. Administered Medications: 12:46 Drug: Levalbuterol Inhalation 3.75 mg Inhalation once Route: Inhalation; kc6 12:46 Drug: Ipratropium Inhalation Aerosol 0.5 mg Inhalation once Route: Inhalation; kc6 12:46 Drug: levofloxacin IVPB 500 mg 100 ml IVPB once over 60 mins Volume: 100 ml; Route: kc6 IVPB; Infused Over: 60 mins; Site: left antecubital; 12:47 Drug: NS 0.9% IV 1000 ml IV at 1 bolus Per protocol; 1000 mL bolus Route: IV; Rate: 1 kc6 bolus; Site: left antecubital; 12:47 Drug: MethylPrednisoLONE IVP 125 mg IVP once Route: IVP; Site: left antecubital; kc6 12:47 Drug: predniSONE PO 60 mg PO once Route: PO; kc6 13:27 Drug: Levalbuterol Inhalation 2.5 mg Inhalation once Route: Inhalation; kc6 13:27 Drug: Magnesium Sulfate IVPB 2 grams IVPB once over 1 hrs Route: IVPB; Infused Over: 1 kc6 hrs; Site: left antecubital; 14:09 Drug: Lovenox Sub-Q 40 mg Sub-Q once Route: Sub-Q; Site: abdomen; kd3 Disposition Summary: 01/21/24 14:05 Hospitalization Ordered Notes: Hospitalization Status: Inpatient Admission carl Provider: Kristian Saba cha Location: Telemetry/MedSurg (observation) carl Condition: Fair carl Problem: new carl Symptoms: have improved carl Bed/Room Type: Standard carl Room Assignment: 413(01/21/24 14:51) eb Diagnosis - Dyspnea carl - Moderate persistent asthma with (acute) exacerbation carl - Tobacco abuse counseling carl - Tobacco use carl - Solitary pulmonary nodule carl Forms: - Medication Reconciliation Form carl - SBAR form carl - Leadership Thank You Letter carl Signatures: Dispatcher [employer] Jose Alfredo Ibarra MD MD cha Calderon, Audri RN RN aa5 Smiley Blunt Kyli, RN RN kd3 Sydney Vizcaino RN RN kc6 Corrections: (The following items were deleted from the chart) 14:51 14:05 carl eb
[2024-01-21] MEDS ORDERED: IPRATROPIUM BROM 0.5MG/2.5ML NEB PRN (14:22)
[2024-01-21] MEDS ORDERED: ALBUTEROL 2.5 MG/3 ML NEB SOL NEB PRN (14:22)
--- NOTE | 2024-01-21 14:44 | RAD REPORT ---
EXAM DESCRIPTION: CT - Chest For Pe Angio - 01/21/2024 2:19 pm CLINICAL HISTORY: DYSPNEA COMPARISON: No comparisons TECHNIQUE: Dynamically enhanced axial 3 mm thick images of the chest were obtained during administra tion of <100> mL Isovue 370 IV contrast. Coronal and oblique reconstruction images were generated and reviewed. Exam utilizes a protocol for optimal evaluation of pulmonary arterial tree. Maximum intensity projections 3D imaging was utilized All CT scans are performed using dose optimization technique as appropriate and may include automated exposure control or mA/KV adjustment according to patient size. FINDINGS: Chest Wall: No suspicious thyroid nodules or pathologic lymphadenopathy. Lungs: 5 mm right upper lobe pulmonary nodule. Minimal mosaic lung attenuation in the anterior left u pper lobe. Pleura: No significant effusions or pneumothorax. Mediastinum/hallie: Mild hilar adenopathy which is likely reactive. Pulmonary arteries/Aorta: No central filling defect identified. The subsegmental pulmonary arteries c annot be adequately evaluated due to motion. No aortic aneurysm. Heart: No significant pericardial effusion. Normal heart size. Upper abdomen: No acute abnormality.Cholecystectomy. Bones: No acute abnormality. IMPRESSION: Negative for clinically significant pulmonary embolism. The subsegmental pulmonary arter ies, particularly in the lung bases, cannot be adequately assessed due to motion. 5 mm right upper lobe pulmonary nodule. If high risk for lung cancer, 12 month follow-up chest CT is recommended. If average risk, further follow-up is not required. Mild bilateral hilar adenopathy which is nonspecific but probably reactive .
--- NOTE | 2024-01-21 14:51 | P.HP ---
Certification for Inpatient Patient admitted to: Observation With expected LOS: >2 Midnights Patient will require the following post-hospital care: None Practitioner: I am a practitioner with admitting privileges, knowledge of patient current condition, hospital course, and medical plan of care. Services: Services provided to patient in accordance with Admission requirements found in Title 42 Section 412.3 of the Code of Federal Regulations Patient History Date of Service: 01/21/24 Reason for admission: Asthma exacerbation History of Present Illness: Adelina Michaud is a 48-year-old female with past medical history of hypertension, asthma, migraines and chronic back pain who presents to the ED with complaints of shortness of breath for 2 1/2 half weeks. She has been using her daily regimen of Advair, albuterol inhaler, and DuoNebs with no relief. She reports smoking 1 pack a day and does not have a seasonal allergies. While in the ED she was given Lovenox, ipratropium, Xopenex, Levaquin, magnesium 2 g, Solu-Medrol, and Deltasone. She is more relaxed now but is having tremors that she attributes to the albuterol. Initial vitals BP 112 / 76; Pulse 85; Resp 16; Pulse Ox 95% on R/A. Laboratory evaluation showing white blood cells 13.5, magnesium 2.1, COVID- negative, otherwise unremarkable. Chest xray reports " The lungs are grossly clear. The heart is normal in size. No displaced fractures. IMPRESSION: No acute intrathoracic process suspected." CTA chest PE protocol reports "IMPRESSION: Negative for clinically significant pulmonary embolism. The subsegmental pulmonary arteries, particularly in the lung bases, cannot be adequately assessed due to motion. 5 mm right upper lobe pulmonary nodule. If high risk for lung cancer, 12 month follow-up chest CT is recommended. If average risk, further follow-up is not required. Mild bilateral hilar adenopathy which is nonspecific but probably reactive." Adelina will be admitted to hospitalist service for further evaluation and treatment of asthma exacerbation. Allergies No Known Allergies Allergy (Verified 09/17/21 13:05) Home Medications: Albuterol Inhaler [Ventolin Inhaler] 2 puff IH Q6H PRN 09/17/21 Baclofen 10 mg PO TID 09/17/21 Diclofenac Potassium 50 mg PO TID 09/17/21 Fluticasone/Salmeterol [Advair 250-50 Diskus] 1 each IH DAILY 09/17/21 Pregabalin 75 mg PO TID 09/17/21 Sumatriptan Succinate [Imitrex] 100 mg PO BIDP PRN 09/17/21 Tramadol HCl [Ultram] 50 mg PO Q6HP PRN 09/17/21 - Past Medical/Surgical History -: Asthma -: Bursitis -: migraines -: chronic pain -: tremors -: wisdom teeth extraction 2014 -: right salphingoopherectomy-ovarian cyst torsion/rupture 2015 -: back injections 2020 - Family History Family History: Reviewed- Non-Contributory - Family History Father -: Stroke Mother -: Lung disease, Diabetes, Cancer Notes: Asthma - Social History Smoking Status: Current every day smoker (one pack/daily) Alcohol use: Yes CD- Drugs: No Caffeine use: No Physical Examination - Studies Laboratory Data (last 24 hrs) 01/21/24 01/21/24 01/21/24 12:10 12:10 12:10 WBC 13.50 H Hgb 15.9 H Hct 45.4 H Plt Count 284 PT 9.9 INR 0.90 Sodium 142 Potassium 4.0 BUN 4 L Creatinine 0.99 Glucose 104 Magnesium 2.1 Total Bilirubin 0.4 AST 16 ALT 25 Alkaline Phosphatase 84 Lipase 31 Microbiology Data (last 24 hrs): 01/21/24 12:10 Nasopharnyx Influenza Type A Antigen Screen - Final 01/21/24 12:10 Nasopharnyx Influenza Type B Antigen Screen - Final Assessment and Plan - Plan Assessment and plan Acute Hypoxic Respiratory distress 2/2 Asthma exacerbation Leukocytosis likely 2/2 inflammation Everyday smoker of 1 pack/day WBC 13.5, bicarb 19 Steroids Zithromax Nebulizer treatments Incentive spirometer 2LNC O2 PRN History of migraines History of chronic pain History of HTN Restart home medications when appropriate Supportive care Smoking abuse 1 pack/day Smoking cessation education provided DVT PPx Lovenox Full code LOS 2 days Discharge Plan: Home Plan to discharge in: 48 Hours - Advance Directives Does patient have a Living Will: No Does patient have a Durable POA for Healthcare: No Time Spent Managing Pts Care (In Minutes): 50
[2024-01-21] MEDS: ENOXAPARIN 40 MG/0.4 ML SQ SCH (15:00)
[2024-01-21 16:06] LABS: Thyroid Stimulating Hormone 2.3 uIU/mL (0.358-3.740)
[2024-01-21] MEDS: METHYLPREDNISOLONE 125 MG INJ IV SCH (18:43)
[2024-01-21 18:48] VITALS: BMI 36.3
[2024-01-21] MEDS: MORPHINE 2 MG/ML SYR IV ONE (20:51)
[2024-01-21] MEDS: HYDROCODONE/APAP 7.5/325 MG TAB PO PRN (21:29)
[2024-01-22] MEDS: BENZONATATE 100 MG CAP PO PRN (00:33)
[2024-01-22 04:50] LABS: Absolute Lymphocytes (CBC) 0.7 K/uL (0.7-4.9); Basophils % 0.3 % (0-1.3); Hematocrit 41.8 % (36.0-45.0); Lymphocytes % 6.1 % (15.3-44.8); MCV 94.3 fL (80-100); MPV 7.9 fL (7.6-11.3); Platelets 252 thou/uL (152-406); RBC Red Blood Cell Count 4.44 M/uL (3.86-4.86)
[2024-01-22 05:27] LABS: Magnesium 2.5 mg/dL (1.6-2.4); Phosphorus 2.6 mg/dL (2.5-4.9)
--- NOTE | 2024-01-22 07:13 | P.PN ---
Date of Service: 01/22/24 Subjective ROS 10 point ROS as noted above, otherwise negative General: AAOx3, NAD HEENT: mucus membranes moist, nares normal Head/Neck: Normocephalic, atraumatic, neck supple Respiratory: symmetrical chest expansion, no accessory muscles used, Wheezing bilaterally Cardiac: RRR, no murmurs or gallops noted Extremities: No edema present, peripheral pulses 2+ Abdominal: soft, NT/ND Skin: warm pink and dry Neurological: clear speech, appropriate Psych: normal mood and affect, Judgment appropriate Vitals Reviewed Problem list Acute Hypoxic Respiratory distress 2/2 Asthma exacerbation Leukocytosis likely 2/2 inflammation Smoking abuse History of migraines History of chronic pain History of HTN Assessment and Plan Acute Hypoxic Respiratory distress 2/2 Asthma exacerbation Leukocytosis likely 2/2 inflammation Everyday smoker of 1 pack/day WBC 13.5, bicarb 19 Steroids Zithromax Nebulizer treatments Incentive spirometer 2LNC O2 PRN History of migraines History of chronic pain History of HTN Restart home medications when appropriate Supportive care Smoking abuse 1 pack/day Smoking cessation education provided DVT PPx Lovenox Full code
[2024-01-22 08:14] LABS: Blood Morphology Comment NOT SEEN (NOT SEEN); Platelet Estimate ADEQ; White Blood Cell Scan OK (OK)
[2024-01-22] MEDS: AZITHROMYCIN IV 500 MG in NA CHLORIDE 0.9% 250 ML IVPB SCH (08:35)
[2024-01-22] MEDS: BACLOFEN 10 MG TAB PO SCH (08:35)
[2024-01-22] MEDS: PREGABALIN 150 MG CAP PO SCH (08:41)
[2024-01-22] MEDS ORDERED: SUMATRIPTAN SUCCI 50 MG TAB PO PRN (09:00)
[2024-01-22 09:13] VITALS: BP 137/76; TEMP 97.2
--- NOTE | 2024-01-22 09:21 | P.DS ---
Admission Date: 01/21/24 Discharge Date: 01/22/24 Disposition: ROUTINE DISCHARGE Discharge Condition: GOOD Reason for Admission: Asthma exacerbation Brief History of Present Illness: Diagnosis Acute Hypoxic Respiratory distress 2/2 Asthma exacerbation Leukocytosis likely 2/2 inflammation Smoking abuse History of migraines History of chronic pain History of HTN Hx tremors HPI 01/21/24 Adelina Michaud is a 48-year-old female with past medical history of hypertension, asthma, migraines, tremors, and chronic back pain who presents to the ED with complaints of shortness of breath for 2 1/2 half weeks. She has been using her daily regimen of Advair, albuterol inhaler, and DuoNebs with no relief. She reports smoking 1 pack a day and does not have a seasonal allergies. While in the ED she was given Lovenox, ipratropium, Xopenex, Levaquin, magnesium 2 g, Solu-Medrol, and Deltasone. She is more relaxed now but is having tremors that she attributes to the albuterol. Initial vitals BP 112 / 76; Pulse 85; Resp 16; Pulse Ox 95% on R/A. Laboratory evaluation showing white blood cells 13.5, magnesium 2.1, COVID- negative, otherwise unremarkable. Chest xray reports " The lungs are grossly clear. The heart is normal in size. No displaced fractures. IMPRESSION: No acute intrathoracic process suspected." CTA chest PE protocol reports "IMPRESSION: Negative for clinically significant pulmonary embolism. The subsegmental pulmonary arteries, particularly in the lung bases, cannot be adequately assessed due to motion. 5 mm right upper lobe pulmonary nodule. If high risk for lung cancer, 12 month follow-up chest CT is recommended. If average risk, further follow-up is not required. Mild bilateral hilar adenopathy which is nonspecific but probably reactive." Adelina will be admitted to hospitalist service for further evaluation and treatment of asthma exacerbation. Hospital Course: Adelina Michaud is a pleasant 48 year old female with a past medical history significant for hypertension, asthma, migraines, tremors, and chronic back pain who was admitted to the [facility] on 01/21/24 for Asthma exacerbation. Adelina Michaud presented to the ED with chief complaint of SOB for 2 1/2 weeks while using her home regimen. Chest xray was negative for infection, CT chest was negative for a clot, but found a 5 mm right upper lobe pulmonary nodule that will need to be followed by pulmonology to be monitored. She has tolerated IV steroids and IV antibiotic as well as nebulizer treatments. She is on room air, ambulating independently, feeling better, and hemodynamically stable. On 01/22/24, Adelina was seen on morning rounds and deemed medically stable for discharge. Adelina was discharged with instructions to schedule follow-up appointments with PCP and Dr. Vargas. Adelina was provided prescriptions for Steroid dose pack, Z-pack, tessalon Perle, and mucinex. The patient and family members were given the opportunity to ask questions and reported no further questions. Furthermore, all questions were answered to the best of my ability. A copy of this discharge summary will be sent to the above providers to facilitate continuity of care. Today, I personally spent 50 minutes with Adelina, of which greater than 50% of the time was spent in patient education, counseling, and coordination of care as described above. Physical Exam General: AAOx3, NAD, calm HEENT: mucus membranes moist, nares normal Head/Neck: Normocephalic, atraumatic, neck supple Respiratory: symmetrical chest expansion, no accessory muscles used, Clear bilaterally on auscultation Cardiac: RRR, no murmurs or gallops noted Extremities: No edema present, peripheral pulses 2+ Abdominal: soft, NT/ND, soft and benign on palpation Skin: warm pink and dry Neurological: clear speech, appropriate Psych: normal mood and affect, Judgment appropriate, tremors noted Vital Signs/Physical Exam: Temp Pulse Resp BP Pulse Ox 97.2 F 74 17 137/76 94 01/22/24 08:00 01/22/24 08:00 01/22/24 08:00 01/22/24 08:00 01/22/24 08:00 Laboratory Data at Discharge: WBC 11.40 thou/uL (4.3-10.9) H 01/22/24 03:48 Hgb 14.2 g/dL (12.0-15.0) D 01/22/24 03:48 Hct 41.8 % (36.0-45.0) 01/22/24 03:48 Plt Count 252 thou/uL (152-406) 01/22/24 03:48 PT 9.9 SECONDS (9.5-12.5) 01/21/24 12:10 INR 0.90 01/21/24 12:10 Sodium 140 mEq/L (136-145) 01/22/24 03:48 Potassium 4.0 mEq/L (3.5-5.1) 01/22/24 03:48 BUN 7 mg/dL (7-18) 01/22/24 03:48 Creatinine 0.88 mg/dL (0.55-1.02) 01/22/24 03:48 Glucose 159 mg/dL (74-106) H 01/22/24 03:48 Phosphorus 2.6 mg/dL (2.5-4.9) 01/22/24 03:48 Magnesium 2.5 mg/dL (1.6-2.4) H 01/22/24 03:48 Total Bilirubin 0.4 mg/dL (0.2-1.0) 01/21/24 12:10 AST 16 U/L (15-37) 01/21/24 12:10 ALT 25 U/L (13-56) 01/21/24 12:10 Alkaline Phosphatase 84 U/L (45-117) 01/21/24 12:10 Lipase 31 U/L (13-75) 01/21/24 12:10 Home Medications: Albuterol Inhaler [Ventolin Inhaler*] 2 puff IH Q6H PRN 09/17/21 Baclofen 10 mg PO TID 09/17/21 Fluticasone/Salmeterol [Advair 250-50 Diskus] 1 each IH DAILY 09/17/21 Pregabalin 150 mg PO TID 09/17/21 Sumatriptan Succinate [Imitrex] 100 mg PO BIDP PRN 09/17/21 Hydrocodone Bit/Acetaminophen [Hydrocodon-Acetaminoph 7.5-325] 1 tab PO BID 01/21/24 Ibuprofen 800 mg PO TID 01/21/24 Azithromycin Tab [Zithromax*] 250 mg PO ZPAK 5 Days #1 jaqueline 01/22/24 Benzonatate [Tessalon Perle*] 200 mg PO TID PRN 5 Days #15 cap 01/22/24 Guaifenesin/Pseudoephedrne HCl [Mucinex D ER Tablet] 1 each PO BID PRN 5 Days #10 tab 01/22/24 Methylprednisolone [Medrol dosepack] 4 mg PO DIRECTED #1 jaqueline 01/22/24 New Medications: Methylprednisolone [Medrol dosepack] 4 mg PO DIRECTED #1 jaqueline Guaifenesin/Pseudoephedrne HCl [Mucinex D ER Tablet] 1 each PO BID PRN 5 Days #10 tab PRN Reason: Cough Benzonatate [Tessalon Perle*] 200 mg PO TID PRN 5 Days #15 cap PRN Reason: Cough Azithromycin Tab [Zithromax*] 250 mg PO ZPAK 5 Days #1 jaqueline Physician Discharge Instructions: Adelina Michaud presented to the ED with chief complaint of SOB for 2 1/2 weeks while using her home regimen. Chest xray was negative for infection, CT chest was negative for a clot, but found a 5 mm right upper lobe pulmonary nodule that will need to be followed by pulmonology to be monitored. She has tolerated IV steroids and IV antibiotic. 1. Please call and schedule a follow-up appointment with your PCP in 3-5 days - Please follow-up with your PCP for medication refills/adjustments 2. Follow up appointment with Dr. Vargas for monitor of the 5 mm right upper lobe pulmonary nodule 3. Continue regular diet 4. no activity restrictions, ambulate as tolerated 5. return to the ED if symptoms worsen New medications steroid dose pack- take as prescribed Z pack- take as prescribed Tessalon perles 200 mg PO TID- PRN cough Mucenix 600 mg PO Q6H- PRN cough Diet: Regular Activity: Ad meenu Followup: Mandeep Francis MD [Primary Care Provider] - Familia Vargas MD [ACTIVE - CAN ADMIT] - Time spent managing pt's care (in minutes): 50
[2024-01-22 09:47] VITALS: O2SAT 94
== END 2024-01-22 12:53 | disposition home or self-care (01) ==
LOC: ER 11:09 → ERHOLD 14:22 → 4TH 15:21
PROVIDERS: ADMIT Internal Medicine; ATTEND Internal Medicine
DX: R06.03 Acute respiratory distress (principal); J44.1 Chronic obstructive pulmonary disease with (acute) exacerbation; I10 Essential (primary) hypertension; R91.1 Solitary pulmonary nodule; G43.909 Migraine, unspecified, not intractable, without status migrainosus; M54.9 Dorsalgia, unspecified; F17.210 Nicotine dependence, cigarettes, uncomplicated; G89.29 Other chronic pain; G25.1 Drug-induced tremor; T48.6X5A Adverse effect of antiasthmatics, initial encounter; Y92.9 Unspecified place or not applicable; D72.829 Elevated white blood cell count, unspecified; Z11.52 Encounter for screening for COVID-19
CPT/HCPCS: 85025 ×2; 80048 ×2; 36415 ×2; 83735 ×2; 84100; 85610; 85379; 80076; 84443; 84484; 84439; 83690; 82306; 83880; 87804 ×2; 71275; 71045; 94010; 96375; 96372; 96374; 99285; 87811; Q9967; J7512; J3475; J7614; J7613; J7644; J1650 ×3; J2930 ×5; J7050; J7030; G0378